=== PATIENT | female | born 1965 | race Caucasian/White ===

== ENCOUNTER 2021-07-28 01:16 | Emergency (ER) | payer OTHER ==
[~2021-07-28] VITALS: Ht 154.9 cm; Wt 60.8 kg
[~2021-07-28 01:16] MED LIST: INTESTINEX680 MG PO; SEPTRA DS TABLE1 TAB PO; ZANTAC150 MG PO
[2021-07-28] MEDS ORDERED: DOLOGESIC 500-1 EACH PO (02:54)
== END 2021-07-28 03:03 ==
LOC: ER 01:16
DX: S89.91XA Unspecified injury of right lower leg, initial encounter (principal)

== ENCOUNTER 2025-02-25 13:49 | Emergency (ER) | payer OTHER ==
[~2025-02-25] VITALS: Ht 154.9 cm; Wt 62.1 kg
[~2025-02-25 13:49] MED LIST changes: +DOLOGESIC 500-1 EACH PO; +NORFLEX100MG PO; +PREMARIN0.45 MG PO; +TRAM1TAB98 PO
[2025-02-25] MEDS ORDERED: DEXAMETHASONE SODIUM PHOSP/PF 10 MG/ML VIAL IV ONE (15:00)
[2025-02-25] MEDS ORDERED: ACETAMINOPHEN 500 MG GEL..CAP PO ONE ×2 (15:15→15:17)
[2025-02-25] MEDS ORDERED: ORPHENADRINE CITRATE 30 MG/ML AMPUL IV ONE (15:15)
[2025-02-25] MEDS ORDERED: ORPHENADRINE CITRATE 30 MG/ML AMPUL ONE (15:16)
[2025-02-25] MEDS ORDERED: DEXAMETHASONE SODIUM PHOSPHATE 4 MG/ML VIAL ONE (15:17)
[2025-02-25] MEDS ORDERED: DEXAMETHASONE SODIUM PHOSPHATE 4 MG/ML VIAL IM STA (15:42)
[2025-02-25] MEDS ORDERED: ORPHENADRINE CITRATE 30 MG/ML AMPUL IM STA (15:42)
[2025-02-25] MEDS ORDERED: MEDROLPACK PO (16:32)
[2025-02-25] MEDS ORDERED: TYLENOL ARTHRI650 MG PO (16:32)
[2025-02-25] MEDS ORDERED: ZANAFLEX4 M1 PO (16:32)
[2025-02-25 17:48] VITALS: BP 131/78; O2SAT 99
== END 2025-02-25 16:50 | disposition home or self-care (01) ==
LOC: ER 13:49
DX: M72.2 Plantar fascial fibromatosis (principal); Z88.0 Allergy status to penicillin; Z88.6 Allergy status to analgesic agent